=== PATIENT | female | born 1945 | race Caucasian/White ===

== ENCOUNTER 2016-09-25 09:11 | Emergency (ER) | payer MEDICARE ==
--- NOTE | 2016-09-25 10:21 | ER PHYSICIAN DOCUMENTATION ---
Physician Documentation [facility] Name:Ewa Arriaga Age:70 yrs Sex:Female :1945 Arrival Date:09/25/2016 Time:09:11 Bed1 Private MD:No PCP, Identified ED Micah Andrews Disposition: 09/25/16 09:35 Discharged to Home/Self Care. Impression: Chronic Back Pain, Acute Back Pain. - Condition is Good. - Discharge Instructions: BACK PAIN (Acute or Chronic). - Prescriptions for oxycodone 10 mg Oral tablet - take 1 tablet by ORAL route every 6 hours; 5 tablet. - Medical Reconciliation form form. - Follow up: Private Physician; When: As needed; Reason: Continuance of care. - Problem is new. - Symptoms have improved. HPI: 09/25 09:41 This 70 yrs old Female presents to ER via Private Vehicle with complaints of jm Back Pain. 09:41 The patient presents with pain that is acute, that is chronic. The symptoms are located jm in the thoracic area, lumbar area and left mid back. Onset: The symptoms/episode began/occurred 2 day(s) ago. The pain does not radiate. The problem was sustained from a chronic condition, the patient has known disc disease. Pt traveled 16 hours and has been sleeping on an air mattress. Pt has chronic back pain and this is a typical flare for her. She forgot her oxycodone at home, so she came here for narcotic relief. . Historical: - Allergies: Amoxicillin; - Home Meds: 1. Seroquel 25 mg oral tab 1 tab nightly for Insomnia 2. oxycodone 10 mg oral tab 1 tab every 6 hours as needed for Pain - PMHx: Chronic Back Pain; Insomnia; - PSHx: Deviated Septum; HYSTERECTOMY; Cataract Surgery; - Tetanus: < 10 years. - Ebola Screening: : Patient negative for fever greater than or equal to 101.5 degrees Fahrenheit, and additional compatible Ebola Virus Disease symptoms. Patient denies exposure to infectious person. Patient denies travel to an Ebola-affected area in the 21 days before illness onset. . - Immunization history: Pneumococcal vaccine is up to date, Flu Vaccine < 1 year. - Social history: Smoking status: Patient states was never smoker of tobacco. ROS: 09:42 Constitutional: Negative for fever. jm 09:42 Back: Positive for pain at rest, pain with movement. 09:42 Neuro: Negative for dizziness, weakness. Exam: 09:42 Constitutional: The patient appears alert, awake. jm 09:42 Respiratory: the patient does not display signs of respiratory distress, Respirations: normal. 09:42 Back: pain, that is mild, of the thoracic area, lumbar area and left mid back, vertebral tenderness, is appreciated at T8, T9 and T10. 09:42 Neuro: Mentation: is normal, Memory: is normal, Gait: is steady. Vital Signs: 09:26 BP 151 / 95; Pulse 77; Resp 18; Temp 97.0(TE); Pulse Ox 92% on R/A; Weight 73.48 kg; lp Height 5 ft. 9 in. (175.26 cm); Pain 5/10; 10:19 Pulse 86; Resp 16; Pulse Ox 91% on R/A; lp 09:26 Body Mass Index 23.92 (73.48 kg, 175.26 cm) lp MDM: 09:16 Patient medically screened. 09:43 Differential diagnosis: acute back pain. Data reviewed: vital signs, nurses notes, and jm as a result, I will discharge patient. Counseling: I had a detailed discussion with the patient and/or guardian regarding: the historical points, exam findings, and any diagnostic results supporting the discharge/admit diagnosis, the need for outpatient follow up, with the patient's primary care provider. Response to treatment: the patient's symptoms have markedly improved after treatment. Dispensed Medications: 09:50 Drug: Dilaudid 1 mg; Route: IM; Site: right deltoid; lp 10:20 Follow up: Response: No adverse reaction; Pain is decreased lp Signatures: Keeley Gale, RN RN Micah Aragon MD MD jm
--- NOTE | 2016-09-25 10:21 | ER NURSING DOCUMENTATION ---
Nurse's Notes [facility] Name:Ewa Arriaga Age:70 yrs Sex:Female :1945 Arrival Date:09/25/2016 Time:09:11 Bed1 Private MD:No PCP, Identified Diagnosis:Chronic Back Pain;Acute Back Pain Presentation: 09/25 09:22 Presenting complaint: Patient states: Thoracic back pain. Transition of care: Home. lp 09:22 Acuity: ROMELIA 3 lp 09:22 Method Of Arrival: Private Vehicle lp Triage Assessment: 09:25 General: Appears uncomfortable, Behavior is appropriate for age. Pain: Complains of lp pain in thoracic area and lumbar area Pain currently is 5 out of 10 on a pain scale. Quality of pain is described as burning, Pain began 2-3 days ago Alleviated by nothing. EENT: No deficits noted. Neuro: Level of Consciousness is awake, alert, Oriented to person, place, time, event, Manager Immunology are equal bilaterally Moves all extremities. Gait is steady, Speech is normal. Musculoskeletal: Circulation, motion, and sensation intact Capillary refill < 3 seconds Reports Denies numbness in, right leg and left leg. Historical: - Allergies: Amoxicillin; - Home Meds: 1. Seroquel 25 mg oral tab 1 tab nightly for Insomnia 2. oxycodone 10 mg oral tab 1 tab every 6 hours as needed for Pain - PMHx: Chronic Back Pain; Insomnia; - PSHx: Deviated Septum; HYSTERECTOMY; Cataract Surgery; - Tetanus: < 10 years. - Ebola Screening: : Patient negative for fever greater than or equal to 101.5 degrees Fahrenheit, and additional compatible Ebola Virus Disease symptoms. Patient denies exposure to infectious person. Patient denies travel to an Ebola-affected area in the 21 days before illness onset. . - Immunization history: Pneumococcal vaccine is up to date, Flu Vaccine < 1 year. - Social history: Smoking status: Patient states was never smoker of tobacco. Screenin:29 Infectious Disease Risk None. Abuse screen: Denies threats or abuse. Denies injuries lp from another. Nutritional screening: No deficits noted. Assessment: 09:28 Neuro: Level of Consciousness is awake, alert, Oriented to person, place, time, event, lp Manager Immunology are equal bilaterally Moves all extremities. Gait is steady, Speech is normal, Facial symmetry appears normal. EENT: No deficits noted. Cardiovascular: Capillary refill < 3 seconds Heart tones S1 S2. Vital Signs: 09:26 BP 151 / 95; Pulse 77; Resp 18; Temp 97.0(TE); Pulse Ox 92% on R/A; Weight 73.48 kg; lp Height 5 ft. 9 in. (175.26 cm); Pain 5/10; 10:19 Pulse 86; Resp 16; Pulse Ox 91% on R/A; lp 09:26 Body Mass Index 23.92 (73.48 kg, 175.26 cm) lp ED Course: 09:12 Patient arrived in ED. ds 09:13 No PCP, Identified is Private Physician. ds 09:16 Micah Schmitt MD is Attending Physician. jm 09:22 Keeley Gale, RADHA is Primary Nurse. lp 09:22 Triage completed. lp 09:[address] Schmitt notified. lp 09:29 Valuables Remains with patient Patient has correct armband on for positive lp identification. Placed in gown. Bed in low position. Call light in reach. Administered Medications: 09:50 Drug: Dilaudid 1 mg; Route: IM; Site: right deltoid; lp 10:20 Follow up: Response: No adverse reaction; Pain is decreased lp Outcome: 09:35 Discharge ordered by . alessio 10:19 Discharged to home lp 10:19 Condition: improved 10:19 Instructed on discharge instructions, follow up and referral plans. medication usage. 10:20 Patient left the ED. lp 07 11:40 Discharge F/U Call: Unable to reach: no answer st Signatures: Deneen Cardona RN RN st Pavlish, Lena, RN RN lp Srot, Hansa, Reg Reg Micah Yeager MD MD jm
== END 2016-09-25 10:21 | disposition home or self-care (01) ==
LOC: ER 09:11
DX: M54.6 Pain in thoracic spine (principal); M54.5 Low back pain; G89.29 Other chronic pain; Z79.899 Other long term (current) drug therapy; Z79.891 Long term (current) use of opiate analgesic
CPT/HCPCS: 96372; 99283; J1170